=== PATIENT | female | born 1930 | race Two or more races ===

== ENCOUNTER 2017-02-12 13:55 | Emergency (ER) | payer MEDICARE, MEDICAID ==
[~2017-02-12] VITALS: Ht 160 cm; Wt 59.0 kg
[~2017-02-12 13:55] MED LIST: ASPIRIN-LOW81 MG ORAL; GABAPENTIN300 MG ORAL; GLIPIZIDE ER10 MG PO; INVANZ1 G1 IM; JANUVIA50 MG ORAL; LEVEMIR FL100 UNIT/2 SQ; METFORMIN HCL1000 M1 ORAL; STARLIX120 MG ORAL; TYLENOL EXTRA500 MG ORAL
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
[2017-02-12] MEDS ORDERED: Aspirin Baby 81mg ORAL ONE (14:30)
[2017-02-12 14:32] LABS: BASOPHILS % (AUTO) 1.1 % (0.0-2.0); LYMPHOCYTES % (AUTO) 26.5 % (20.0-45.0); MEAN CORPUSCULAR HEMOGLOBIN 30.2 PG (27.0-31.0); MEAN CORPUSCULAR HGB CONC 32.9 G/DL (32.0-36.0); MEAN CORPUSCULAR VOLUME 92 FL (80-99); MEAN PLATELET VOLUME 7.3 FL (6.5-10.1); MONOCYTES % (AUTO) 7.2 % (1.0-10.0); NEUTROPHILS % (AUTO) 64.2 % (45.0-75.0); PLATELET COUNT 212 K/UL (150-450); RED BLOOD COUNT 4.04 M/UL (4.20-5.40); RED CELL DISTRIBUTION WIDTH 11.2 % (11.6-14.8)
[2017-02-12 14:52] LABS: ALANINE AMINOTRANSFERASE 8 U/L (3-33); ALBUMIN/GLOBULIN RATIO 1.1 (1.0-2.7); ANION GAP 16 (5-15); ASPARTATE AMINO TRANSFERASE 12 U/L (5-40); CALCIUM 8.9 mg/dL (8.6-10.2); CARBON DIOXIDE 25 mEQ/L (20-30); CHLORIDE 89 mEQ/L (98-107); CREATININE 1.1 mg/dL (0.5-0.9); HEMOLYSIS 15; POTASSIUM 4.6 mEQ/L (3.4-4.9); SODIUM 130 mEQ/L (135-145)
[2017-02-12 14:55] LABS: TROPONIN I < 0.30 ng/mL (<=0.30)
--- NOTE | 2017-02-12 15:22 | Diagnostic Imaging Report ---
Indication: SOB Technique: One view of the chest Comparison: none Findings: There is some atelectasis at the right lung base. Previously demonstrated pleural effusions have largely cleared; there may be trace residual pleural fluid on the right. There is a left chest bifocal pacemaker which is new since previous study. Heart size is upper limits of normal. Aorta is tortuous and calcified Impression: Right basilar atelectasis and possibly trace pleural fluid. Otherwise clear lungs. New left chest pacemaker; recently placed according to the ER physician Other findings as noted
[2017-02-12 15:24] LABS: CKMB 1.7 ng/mL (< 3.8)
[2017-02-12 15:52] LABS: APPEARANCE,URINE CLEAR; KETONES,URINE NEGATIVE (NEGATIVE); LEUKOCYTE ESTERASE ,URINE 3+ (NEGATIVE); NITRITE,URINE POSITIVE (NEGATIVE); PH,URINE 6.5 (4.5-8.0); PROTEIN,URINE 1+ (NEGATIVE); UROBILINOGEN,URINE NORMAL MG/DL (0.0-1.0)
[2017-02-12] MEDS ORDERED: cefTRIAXone 1 GM in NS 55 ML IVPB ONE (16:00)
[2017-02-12 16:05] LABS: REFLEX LACTIC ACID YES OR NO YES
[2017-02-12 16:17] LABS: BACTERIA,URINE FEW /HPF; SQUAMOUS EPITHELIAL CELL,UR FEW /LPF (NONE/OCC)
[2017-02-12 17:09] VITALS: BP 126/51
[2017-02-12 18:36] VITALS: BP 124/48
[2017-02-12 19:52] VITALS: BP 145/72
[2017-02-12 20:00] VITALS: BP 145/72
== END 2017-02-12 20:10 | disposition short-term general hospital (02) ==
LOC: EDBD 13:55 → EMR 14:28
DX: I24.9 Acute ischemic heart disease, unspecified (principal); N39.0 Urinary tract infection, site not specified; E11.65 Type 2 diabetes mellitus with hyperglycemia; H26.9 Unspecified cataract; G62.9 Polyneuropathy, unspecified; Z95.0 Presence of cardiac pacemaker
CPT/HCPCS: 36415; 71010; 80053; 81003; 82009; 82550; 82553; 82962; 83605; 83880; 84484; 85025; 85610; 85730; 87040; 87181; 93005; 96374; 96375; 99284; J0696; J1815

== ENCOUNTER 2018-10-05 11:33 | Inpatient (IN) | payer MEDICARE, OTHER ==
[~2018-10-05] VITALS: Ht 162.6 cm; Wt 65.5 kg
[2018-10-05] MEDS ORDERED: Sodium Chloride 500ML 500 ML IV ONE (11:45)
[2018-10-05 11:47] VITALS: BP 142/96
--- NOTE | 2018-10-05 12:12 | Diagnostic Imaging Report ---
EXAM: XR Chest, 1 View CLINICAL HISTORY: Chest pain TECHNIQUE: Frontal view of the chest. COMPARISON: No relevant prior studies available. FINDINGS: Lungs: Mild pulmonary vascular congestion. The lungs otherwise appear clear. Pleural space: Unremarkable. The costophrenic angles are sharp. No visible pneumothorax. Heart: Unremarkable. No cardiomegaly. Mediastinum: Unremarkable. Bones/joints: Unremarkable. Tubes, lines and devices: Cardiac pacer in the left chest wall with the lead tips in the right atrium and right ventricle regions. IMPRESSION: Mild pulmonary vascular congestion.
[2018-10-05 12:50] LABS: APPEARANCE,URINE CLOUDY; BILIRUBIN, URINE NEGATIVE (NEGATIVE); GLUCOSE, URINE (UA) NEGATIVE (NEGATIVE); KETONES,URINE NEGATIVE (NEGATIVE); LEUKOCYTE ESTERASE ,URINE 3+ (NEGATIVE); NITRITE,URINE POSITIVE (NEGATIVE); PH,URINE 5 (4.5-8.0); PROTEIN,URINE 3+ (NEGATIVE); UROBILINOGEN,URINE NORMAL MG/DL (0.0-1.0)
[2018-10-05 12:51] LABS: BASOPHILS % (AUTO) 0.8 % (0.0-2.0); EOSINOPHILS % (AUTO) 11.7 % (0.0-3.0); HEMATOCRIT 40.2 % (37.0-47.0); HEMOGLOBIN 13.4 G/DL (12.0-16.0); LYMPHOCYTES % (AUTO) 21.6 % (20.0-45.0); MEAN CORPUSCULAR VOLUME 89 FL (80-99); MONOCYTES % (AUTO) 5.3 % (1.0-10.0); NEUTROPHILS % (AUTO) 60.7 % (45.0-75.0); PLATELET COUNT 230 K/UL (150-450); RED BLOOD COUNT 4.52 M/UL (4.20-5.40); RED CELL DISTRIBUTION WIDTH 11.2 % (11.6-14.8); WHITE BLOOD COUNT 11.5 K/UL (4.8-10.8)
[2018-10-05 12:53] LABS: COLOR,URINE YELLOW
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
[2018-10-05 13:01] LABS: ANION GAP 9 mmol/L (5-15); BLOOD UREA NITROGEN 40 mg/dL (7-18); CALCIUM 10.3 MG/DL (8.5-10.1); CARBON DIOXIDE 28 MMOL/L (21-32); CHLORIDE 99 MMOL/L (98-107); CREATININE 1.4 MG/DL (0.55-1.30); POTASSIUM 4.6 MMOL/L (3.5-5.1); SODIUM 136 MMOL/L (136-145)
[2018-10-05 13:18] LABS: ALANINE AMINOTRANSFERASE 25 U/L (12-78); ALBUMIN 3.4 G/DL (3.4-5.0); ALBUMIN/GLOBULIN RATIO 0.9 (1.0-2.7); ALKALINE PHOSPHATASE 76 U/L (46-116); ASPARTATE AMINO TRANSFERASE 14 U/L (15-37); BILIRUBIN,TOTAL 0.4 MG/DL (0.2-1.0); CKMB 2.1 NG/ML (0.0-3.6); CREATINE KINASE 98 U/L (26-308)
[2018-10-05] MEDS ORDERED: cefTRIAXone 1 GM in NS 55 ML IVPB ONE (13:30)
--- NOTE | 2018-10-05 14:18 | Diagnostic Imaging Report ---
EXAM: CT Head Without Intravenous Contrast CLINICAL HISTORY: DIZZY TECHNIQUE: Axial computed tomography images of the head/brain without intravenous contrast. CTDI is 70.53 mGy and DLP is 1376 mGy-cm. One or more of the following dose reduction techniques were used: automated exposure control, adjustment of the mA and/or kV according to patient size, use of iterative reconstruction technique. COMPARISON: No relevant prior studies available. FINDINGS: Brain: Generalized cerebral parenchymal volume loss, likely age-related. No evidence of acute intracranial hemorrhage. No significant white matter disease. No edema. No mass effect or midline shift. Ventricles: Unremarkable. No ventriculomegaly. Bones/joints: Unremarkable. No depressed skull fracture. Soft tissues: Unremarkable. Sinuses: Unremarkable as visualized. No acute sinusitis. Mastoid air cells: Unremarkable as visualized. No mastoid effusion. IMPRESSION: 1. No acute intracranial findings. 2. Generalized cerebral parenchymal volume loss, likely age-related.
[2018-10-05 16:20] VITALS: BP 124/62
[2018-10-05] MEDS ORDERED: Acetaminophen 500mg (ES) tab ORAL PRN (16:30)
[2018-10-05] MEDS ORDERED: Miralax 17gm pkt ORAL PRN (16:30)
[2018-10-05] MEDS ORDERED: Zolpidem 5mg tab ORAL PRN (16:30)
--- NOTE | 2018-10-05 16:54 | History & Physical ---
History and Physical History & Physicial HP dictated # [id number] Karel Sierra MD Oct 05, 2018 16:54
[2018-10-05] MEDS: Aspirin EC 81mg tab ORAL SCH (17:30)
[2018-10-05 20:00] VITALS: BP 123/58
[2018-10-05] MEDS ORDERED: Norco 5mg/325mg tab ORAL PRN (20:15)
[2018-10-05] MEDS: HYDROcodone/Acetamin 10/325 tab ORAL PRN (20:37)
[2018-10-05] MEDS ORDERED: Levemir Flexpen SUBQ SCH (21:00)
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
[2018-10-06] VITALS: BP 105/76
[2018-10-06 04:00] VITALS: BP 96/55
[2018-10-06] MEDS: sitaGLIPtin 25mg tab ORAL SCH (05:38)
[2018-10-06] MEDS ORDERED: 1/2 NS 1000ml IV ONE (08:43)
[2018-10-06 08:50] VITALS: BP 99/50
[2018-10-06] MEDS: Aspirin EC 81mg tab ORAL SCH (09:03)
--- NOTE | 2018-10-06 09:49 | General Progress Note ---
Assessment/Plan Problem List: (1) Acute encephalopathy ICD Codes: G93.40 - Encephalopathy, unspecified SNOMED: 8218130 (2) Diabetes mellitus ICD Codes: E11.9 - Type 2 diabetes mellitus without complications SNOMED: 87022787 (3) UTI (urinary tract infection) ICD Codes: N39.0 - Urinary tract infection, site not specified SNOMED: 69391938 (4) Episode of generalized weakness ICD Codes: R53.1 - Weakness SNOMED: 86553178 Assessment/Plan IVF abxs follow labs may need placement Subjective Allergies: Coded Allergies: PIOGLITAZONE (Unverified Allergy, Unknown, 09/05/16) Subjective confused Objective Last 24 Hour Vital Signs Date Time Temp Pulse Resp B/P (MAP) Pulse Ox O2 Delivery O2 Flow Rate FiO2 10/06/18 08:50 97.8 72 19 99/50 (66) 95 10/06/18 04:00 97.8 72 19 96/55 (69) 95 10/06/18 00:00 98.1 83 19 105/76 (86) 95 10/05/18 21:07 98.7 10/05/18 21:00 Room Air 10/05/18 20:00 98.7 71 19 123/58 (79) 95 10/05/18 16:20 97.1 78 18 124/62 (82) 94 10/05/18 16:20 Room Air 10/05/18 15:40 97.5 71 16 102/50 94 Room Air 10/05/18 11:47 83 18 Room Air 98 10/05/18 11:47 96.0 83 18 142/96 98 Room Air 10/05/18 11:24 97.5 90 17 99/85 98 Room Air Intake and Output 10/05/18 10/06/18 18:59 06:59 Intake Total 1030 ml 1080 ml Balance 1030 ml 1080 ml Intake Oral 480 ml 180 ml IV Total 550 ml 900 ml # Voids 3 2 Laboratory Tests 10/05/18 12:00: White Blood Count 11.5H, Red Blood Count 4.52, Hemoglobin 13.4, Hematocrit 40.2 , Mean Corpuscular Volume 89, Mean Corpuscular Hemoglobin 29.6, Mean Corpuscular Hemoglobin Concent 33.3, Red Cell Distribution Width 11.2L, Platelet Count 230, Mean Platelet Volume 7.7, Neutrophils (%) (Auto) 60.7, Lymphocytes (%) (Auto) 21.6, Monocytes (%) (Auto) 5.3, Eosinophils (%) (Auto) 11.7H, Basophils (%) (Auto) 0.8, Urine Color Yellow, Urine Appearance Cloudy, Urine pH 5, Urine Specific [place] 1.015, Urine Protein 3+H, Urine Glucose (UA) Negative, Urine Ketones Negative, Urine Blood 2+H, Urine Nitrite PositiveH, Urine Bilirubin Negative, Urine Urobilinogen Normal, Urine Leukocyte Esterase 3+ H, Urine RBC 2-4H, Urine WBC 60-80H, Urine Squamous Epithelial Cells Occasional , Urine Bacteria ManyH, Sodium Level 136, Potassium Level 4.6, Chloride Level 99 , Carbon Dioxide Level 28, Anion Gap 9, Blood Urea Nitrogen 40H, Creatinine 1.4H , Estimat Glomerular Filtration Rate , Glucose Level 200H, Lactic Acid Level 1.20, Calcium Level 10.3H, Total Bilirubin 0.4, Aspartate Amino Transf (AST/SGOT ) 14L, Alanine Aminotransferase (ALT/SGPT) 25, Alkaline Phosphatase 76, Total Creatine Kinase 98, Creatine Kinase MB 2.1, Creatine Kinase MB Relative Index 2.1, Troponin I 0.000, Total Protein 7.3, Albumin 3.4, Globulin 3.9, Albumin/ Globulin Ratio 0.9L, Lipase 138 Height (Feet): 5 Height (Inches): 4.00 Weight (Pounds): 139 Cardiovascular: normal rate Respiratory/Chest: lungs clear Edema: no edema noted Generalized Karel Sierra MD Oct 06, 2018 09:49
[2018-10-06] MEDS: HYDROcodone/Acetamin 10/325 tab ORAL PRN (11:42)
--- NOTE | 2018-10-06 11:45 | General Progress Note ---
Assessment/Plan Problem List: (1) Uncontrolled diabetes mellitus ICD Codes: E11.65 - Type 2 diabetes mellitus with hyperglycemia SNOMED: 061039456 (2) Dehydration ICD Codes: E86.0 - Dehydration SNOMED: 96284417 Assessment/Plan increase Levemir to 26 units qhs add Novolog 6 units ac tid continue Starlix 120 mg ac tid continue Januvia 25 mg daily continue NISS Subjective Allergies: Coded Allergies: PIOGLITAZONE (Unverified Allergy, Unknown, 09/05/16) All Systems: reviewed and negative except above Subjective admitted with elevated glucose and dehydration Objective Last 24 Hour Vital Signs Date Time Temp Pulse Resp B/P (MAP) Pulse Ox O2 Delivery O2 Flow Rate FiO2 10/06/18 09:00 Room Air 10/06/18 08:50 97.8 72 19 99/50 (66) 95 10/06/18 04:00 97.8 72 19 96/55 (69) 95 10/06/18 00:00 98.1 83 19 105/76 (86) 95 10/05/18 21:07 98.7 10/05/18 21:00 Room Air 10/05/18 20:00 98.7 71 19 123/58 (79) 95 10/05/18 16:20 97.1 78 18 124/62 (82) 94 10/05/18 16:20 Room Air 10/05/18 15:40 97.5 71 16 102/50 94 Room Air 10/05/18 11:47 83 18 Room Air 98 10/05/18 11:47 96.0 83 18 142/96 98 Room Air Intake and Output 10/05/18 10/06/18 18:59 06:59 Intake Total 1030 ml 1080 ml Balance 1030 ml 1080 ml Intake Oral 480 ml 180 ml IV Total 550 ml 900 ml # Voids 3 2 Laboratory Tests 10/05/18 12:00: White Blood Count 11.5H, Red Blood Count 4.52, Hemoglobin 13.4, Hematocrit 40.2 , Mean Corpuscular Volume 89, Mean Corpuscular Hemoglobin 29.6, Mean Corpuscular Hemoglobin Concent 33.3, Red Cell Distribution Width 11.2L, Platelet Count 230, Mean Platelet Volume 7.7, Neutrophils (%) (Auto) 60.7, Lymphocytes (%) (Auto) 21.6, Monocytes (%) (Auto) 5.3, Eosinophils (%) (Auto) 11.7H, Basophils (%) (Auto) 0.8, Urine Color Yellow, Urine Appearance Cloudy, Urine pH 5, Urine Specific [place] 1.015, Urine Protein 3+H, Urine Glucose (UA) Negative, Urine Ketones Negative, Urine Blood 2+H, Urine Nitrite PositiveH, Urine Bilirubin Negative, Urine Urobilinogen Normal, Urine Leukocyte Esterase 3+ H, Urine RBC 2-4H, Urine WBC 60-80H, Urine Squamous Epithelial Cells Occasional , Urine Bacteria ManyH, Sodium Level 136, Potassium Level 4.6, Chloride Level 99 , Carbon Dioxide Level 28, Anion Gap 9, Blood Urea Nitrogen 40H, Creatinine 1.4H , Estimat Glomerular Filtration Rate , Glucose Level 200H, Lactic Acid Level 1.20, Calcium Level 10.3H, Total Bilirubin 0.4, Aspartate Amino Transf (AST/SGOT ) 14L, Alanine Aminotransferase (ALT/SGPT) 25, Alkaline Phosphatase 76, Total Creatine Kinase 98, Creatine Kinase MB 2.1, Creatine Kinase MB Relative Index 2.1, Troponin I 0.000, Total Protein 7.3, Albumin 3.4, Globulin 3.9, Albumin/ Globulin Ratio 0.9L, Lipase 138 Height (Feet): 5 Height (Inches): 4.00 Weight (Pounds): 139 General Appearance: no apparent distress Neck: normal alignment Cardiovascular: normal rate Respiratory/Chest: chest wall non-tender Abdomen: normal bowel sounds Edema: no edema noted Arm (L), no edema noted Arm (R), no edema noted Leg (L), no edema noted Leg (R), no edema noted Pedal (L), no edema noted Pedal (R), no edema noted Generalized Objective Current Medications Medications (Trade) Dose Ordered Sig/Jose Route PRN Reason Start Time Stop Time Status Last Admin Dose Admin Acetaminophen (Tylenol) 500 mg Q6H PRN ORAL Mild Pain/Temp > 100.5 10/05/18 16:30 11/04/18 16:29 Acetaminophen/ Hydrocodone Bitart ([place] 10/325) 1 tab Q4H PRN ORAL Severe Pain (Pain Scale 7-10) 10/05/18 20:15 10/12/18 20:14 10/06/18 11:42 Acetaminophen/ Hydrocodone Bitart ([place] 5/325) 1 tab Q4H PRN ORAL Moderate Pain (Pain Scale 4-6) 10/05/18 20:15 10/12/18 20:14 Aspirin (Ecotrin) 81 mg DAILY ORAL 10/05/18 16:30 11/04/18 16:29 10/06/18 09:03 Ceftriaxone Sodium 1 gm/ Dextrose 55 ml @ 110 mls/hr Q24H IVPB 10/06/18 14:00 10/13/18 13:59 Dextrose (Dextrose 50%) 25 ml Q30M PRN IV Hypoglycemia 10/05/18 16:30 11/04/18 16:29 Dextrose (Dextrose 50%) 50 ml Q30M PRN IV Hypoglycemia 10/05/18 16:30 11/04/18 16:29 Gabapentin (Neurontin) 300 mg BID ORAL 10/05/18 18:00 11/04/18 17:59 10/06/18 09:03 Insulin Detemir (Levemir) 20 units QHS SUBQ 10/05/18 21:00 11/04/18 20:59 10/05/18 20:36 Nateglinide (Starlix) 120 mg TIAC ORAL 10/05/18 16:30 11/04/18 16:29 10/06/18 11:36 Polyethylene Glycol (Miralax) 17 gm HSPRN PRN ORAL Constipation 10/05/18 16:30 11/04/18 16:29 Sitagliptin Phosphate (Januvia) 25 mg ACBREAKFAST ORAL 10/06/18 06:30 11/05/18 06:29 10/06/18 05:38 Sodium Chloride 1,000 ml @ 75 mls/hr [id number] IV 10/05/18 16:45 11/04/18 16:44 10/06/18 05:37 Zolpidem Tartrate (Ambien) 5 mg HSPRN PRN ORAL Insomnia 10/05/18 16:30 10/12/18 16:29 Item Value Date Time Bedside Blood Glucose 144 mg/dl H 09/12/16 0611 Bedside Blood Glucose 175 mg/dl H 09/11/16 2100 Bedside Blood Glucose 184 mg/dl H 09/11/16 1805 Bedside Blood Glucose 171 mg/dl H 09/11/16 1103 Bedside Blood Glucose 158 mg/dl H 09/11/16 0626 Bedside Blood Glucose 322 mg/dl H 10/06/18 1130 Bedside Blood Glucose 238 mg/dl H 10/06/18 0623 Bedside Blood Glucose 328 mg/dl H 10/05/18 2100 Michael Cevallos MD Oct 06, 2018 11:45
[2018-10-06 12:00] VITALS: BP 100/52
[2018-10-06] MEDS: NovoLOG Insulin Flexpen SUBQ SCH ×2 (12:43→16:52)
[2018-10-06] MEDS: cefTRIAXone 1 GM in D5W 55 ML IVPB SCH (13:05)
--- NOTE | 2018-10-06 14:11 | Cardiology Report ---
APPROVED REPORT EKG Measurement Heart [id number] ID [id number] Normal sinus rhythm Septal infarct, age undetermined T wave abnormality, consider anterolateral ischemia Abnormal ECG
--- NOTE | 2018-10-06 15:45 | Consultation ---
DATE OF CONSULTATION: 10/06/2018 INFECTIOUS DISEASES CONSULTATION CONSULTING PHYSICIAN: Thomas Cherry M.D. REFERRING PHYSICIAN: Karel Sierra M.D. REASON FOR CONSULTATION: Urinary tract infection. HISTORY OF PRESENTING ILLNESS: This is a 89-year-old lady with history of diabetes, hypertension, coronary artery disease status post stent placement as well as pacemaker placement and CVA who comes in with confusion. She was found to have urinary tract infection and an Infectious Diseases consultation has been obtained for antibiotics. PAST MEDICAL HISTORY: 1. History of diabetes. 2. Hypertension. 3. Coronary artery disease status post stent placement. 4. Status post pacemaker placement. 5. History of CVA. MEDICATIONS: As an inpatient, she is on ceftriaxone, Januvia, insulin, [place], gabapentin, Tylenol, aspirin, Starlix, MiraLAX, Ambien. ALLERGIES: To pioglitazone noted. SOCIAL HISTORY: She does not smoke, drink, or use drugs. FAMILY HISTORY: Noncontributory. REVIEW OF SYSTEMS: RESPIRATORY: No fever, chills, cough, shortness of breath or chest pain. CARDIAC: No chest pain. No palpitations. No dizziness. No syncope. GASTROINTESTINAL: No nausea, no vomiting. No abdominal pain or diarrhea. GENITOURINARY: No dysuria. No hematuria. PHYSICAL EXAMINATION: VITAL SIGNS: Temperature of 97.8, T-max of 98.7, pulse of 72, respiratory rate of 19, blood pressure 99/50, O2 saturation of 95% HEENT: Pupils equally reactive to light and accommodation. Mouth appears clean without thrush. NECK: Supple. No adenopathy. No JVD. CARDIOVASCULAR: Regular rate and rhythm. No murmurs. LUNGS: Clear to auscultation bilaterally. No crackles. No wheezes. ABDOMEN: Soft and nontender. No organomegaly. EXTREMITIES: No cyanosis, no clubbing, no edema. LABORATORY AND DIAGNOSTIC DATA: White count 11.5, hemoglobin 13.4, hematocrit 40.2, MCV 89, platelet count of 230, neutrophils of 60%. Sodium 136, potassium 4.6, chloride 99, bicarbonate 28, BUN 40, creatinine 1.4, glucose 200. Calcium 10.3. Total bilirubin 0.4. AST 14, ALT 25, alkaline phosphatase 76. CK of 98, CK-MB 2.1. Troponin 0. Total protein 7.3 and albumin 3.4. Lipase of 138. UA showing 60 to 80 white cells. Urine culture is showing gram-negative rods more than 100,000 colonies. Chest x-ray showing mild pulmonary congestion. CT head showing no acute findings, generalized cerebral parenchymal volume loss, likely age-related. ASSESSMENT: This is an 88-year-old lady with history of diabetes and hypertension who comes in with confusion and is found to have: 1. Gram-negative urinary tract infection. 2. Diabetes. 3. Hypertension. 4. Coronary artery disease status post stent placement. PLAN: 1. Continue ceftriaxone for now. 2. We will follow up cultures and adjust antibiotics accordingly. I would like to thank, Dr. Karel Sierra for this consultation. Thomas Cherry M.D. DR: Titus JOB#: [id number] CC: Karel Sierra M.D.; Fax#: [phone]
[2018-10-06 16:00] VITALS: BP 100/60
[2018-10-06 20:00] VITALS: BP 121/64
[2018-10-06] MEDS: Levemir Flexpen SUBQ SCH (20:37)
[2018-10-07] VITALS: BP 126/68
[2018-10-07 04:00] VITALS: BP 118/45
[2018-10-07] MEDS: sitaGLIPtin 25mg tab ORAL SCH (05:45)
[2018-10-07] MEDS: NovoLOG Insulin Flexpen SUBQ SCH ×3 (05:49→16:19)
[2018-10-07 08:00] VITALS: BP 116/66
[2018-10-07] MEDS: Aspirin EC 81mg tab ORAL SCH (10:05)
[2018-10-07 12:00] VITALS: BP 134/70
--- NOTE | 2018-10-07 12:50 | Nephrology Progress Note ---
Assessment/Plan Assessment/Plan A/P 1) UTI- rocephin 2) DM- ISS with oral hypoglycemics 3) GERD- famotadine 4) Encephalopathy- chronic monitor [facility]) [facility] Date patient seen: Oct 07, 2018 Time patient seen: 12:47 ROS Limited/Unobtainable: No Gastrointestinal/Abdominal: Reports: nausea Allergies: Coded Allergies: PIOGLITAZONE (Unverified Allergy, Unknown, 09/05/16) Subjective Patient c/o GERD like symptoms Objective Last 24 Hour Vital Signs Date Time Temp Pulse Resp B/P (MAP) Pulse Ox O2 Delivery O2 Flow Rate FiO2 10/07/18 09:00 Room Air 10/07/18 08:00 98.0 96 19 116/66 (83) 98 10/07/18 04:00 97.7 99 18 118/45 (69) 95 10/07/18 00:00 95.9 98 20 126/68 (87) 91 10/06/18 21:00 Room Air 10/06/18 20:00 96.8 79 16 121/64 (83) 93 10/06/18 16:00 97.0 87 17 100/60 (73) 96 Intake and Output 10/06/18 10/07/18 18:59 06:59 Intake Total 1685 ml 100 ml Balance 1685 ml 100 ml Intake Oral 860 ml 100 ml IV Total 825 ml # Voids 4 Height (Feet): 5 Height (Inches): 4.00 Weight (Pounds): 139 General Appearance: no apparent distress, alert Neck: normal alignment, supple Cardiovascular: normal rate, regular rhythm Respiratory/Chest: lungs clear, normal breath sounds Abdomen: non tender, soft Edema: no edema noted Arm (L), no edema noted Arm (R), no edema noted Leg (L), no edema noted Leg (R), no edema noted Pedal (L), no edema noted Pedal (R), no edema noted Generalized Vignesh Rasheed MD Oct 07, 2018 12:50
[2018-10-07] MEDS: cefTRIAXone 1 GM in D5W 55 ML IVPB SCH (13:12)
--- NOTE | 2018-10-07 13:56 | General Progress Note ---
Assessment/Plan Problem List: (1) Uncontrolled diabetes mellitus ICD Codes: E11.65 - Type 2 diabetes mellitus with hyperglycemia SNOMED: 468898379 (2) Dehydration ICD Codes: E86.0 - Dehydration SNOMED: 21594238 Assessment/Plan continue Levemir 26 units qhs continue Novolog 6 units ac tid continue Starlix 120 mg ac tid continue Januvia 25 mg daily continue NISS Subjective Allergies: Coded Allergies: PIOGLITAZONE (Unverified Allergy, Unknown, 09/05/16) All Systems: reviewed and negative except above Subjective events noted Objective Last 24 Hour Vital Signs Date Time Temp Pulse Resp B/P (MAP) Pulse Ox O2 Delivery O2 Flow Rate FiO2 10/07/18 12:00 97.9 86 18 134/70 (91) 98 10/07/18 09:00 Room Air 10/07/18 08:00 98.0 96 19 116/66 (83) 98 10/07/18 04:00 97.7 99 18 118/45 (69) 95 10/07/18 00:00 95.9 98 20 126/68 (87) 91 10/06/18 21:00 Room Air 10/06/18 20:00 96.8 79 16 121/64 (83) 93 10/06/18 16:00 97.0 87 17 100/60 (73) 96 Intake and Output 10/06/18 10/07/18 18:59 06:59 Intake Total 1685 ml 100 ml Balance 1685 ml 100 ml Intake Oral 860 ml 100 ml IV Total 825 ml # Voids 4 Height (Feet): 5 Height (Inches): 4.00 Weight (Pounds): 139 General Appearance: no apparent distress Neck: normal alignment Cardiovascular: normal rate Respiratory/Chest: lungs clear Abdomen: normal bowel sounds Edema: no edema noted Arm (L), no edema noted Arm (R), no edema noted Leg (L), no edema noted Leg (R), no edema noted Pedal (L), no edema noted Pedal (R), no edema noted Generalized Objective Current Medications Medications (Trade) Dose Ordered Sig/Jose Route PRN Reason Start Time Stop Time Status Last Admin Dose Admin Acetaminophen (Tylenol) 500 mg Q6H PRN ORAL Mild Pain/Temp > 100.5 10/05/18 16:30 11/04/18 16:29 Acetaminophen/ Hydrocodone Bitart ([place] 10/325) 1 tab Q4H PRN ORAL Severe Pain (Pain Scale 7-10) 10/05/18 20:15 10/12/18 20:14 10/06/18 11:42 Acetaminophen/ Hydrocodone Bitart ([place] 5/325) 1 tab Q4H PRN ORAL Moderate Pain (Pain Scale 4-6) 10/05/18 20:15 10/12/18 20:14 Al Hydroxide/Mg Hydroxide (Mylanta) 30 ml Q6H PRN ORAL Abdominal cramps 10/06/18 23:45 11/05/18 23:44 10/07/18 00:13 Aspirin (Ecotrin) 81 mg DAILY ORAL 10/05/18 16:30 11/04/18 16:29 10/07/18 10:05 Ceftriaxone Sodium 1 gm/ Dextrose 55 ml @ 110 mls/hr Q24H IVPB 10/06/18 14:00 10/13/18 13:59 10/07/18 13:12 Dextrose (Dextrose 50%) 25 ml Q30M PRN IV Hypoglycemia 10/06/18 11:45 11/05/18 11:44 Dextrose (Dextrose 50%) 50 ml Q30M PRN IV Hypoglycemia 10/06/18 11:45 11/05/18 11:44 Famotidine (Pepcid) 20 mg BID ORAL 10/07/18 12:53 11/06/18 12:52 10/07/18 13:12 Gabapentin (Neurontin) 300 mg BID ORAL 10/05/18 18:00 11/04/18 17:59 10/07/18 10:05 Insulin Aspart (NovoLOG) 6 units NOVOTIAC SUBQ 10/06/18 11:50 11/05/18 11:49 10/07/18 12:02 Insulin Detemir (Levemir) 26 units QHS SUBQ 10/06/18 21:00 11/04/18 20:59 10/06/18 20:37 Nateglinide (Starlix) 120 mg TIAC ORAL 10/05/18 16:30 11/04/18 16:29 10/07/18 11:57 Polyethylene Glycol (Miralax) 17 gm HSPRN PRN ORAL Constipation 10/05/18 16:30 11/04/18 16:29 Sitagliptin Phosphate (Januvia) 25 mg ACBREAKFAST ORAL 10/06/18 06:30 11/05/18 06:29 10/07/18 05:45 Sodium Chloride 1,000 ml @ 75 mls/hr [id number] IV 10/05/18 16:45 11/04/18 16:44 10/07/18 10:05 Zolpidem Tartrate (Ambien) 5 mg HSPRN PRN ORAL Insomnia 10/05/18 16:30 10/12/18 16:29 Item Value Date Time Bedside Blood Glucose 158 mg/dl H 10/07/18 1202 Bedside Blood Glucose 217 mg/dl H 10/07/18 0549 Bedside Blood Glucose 252 mg/dl H 10/06/18 2100 Bedside Blood Glucose 227 mg/dl H 10/06/18 1652 Bedside Blood Glucose 322 mg/dl H 10/06/18 1243 Michael Cevallos MD Oct 07, 2018 13:56
[2018-10-07 16:00] VITALS: BP 140/71
--- NOTE | 2018-10-07 16:00 | Infectious Diseases Prog Note ---
Assessment/Plan Assessment/Plan antibiotics : ceftriaxone A 1. Gram-negative urinary tract infection. 2. Diabetes. 3. Hypertension. 4. Coronary artery disease status post stent placement. P 1. continue ceftriaxone 2. will follow up cultures Subjective Constitutional: Denies: fever, chills Respiratory: Denies: shortness of breath, dry cough Gastrointestinal/Abdominal: Reports: vomiting - with blood; Denies: nausea, diarrhea Musculoskeletal: Denies: pain Allergies: Coded Allergies: PIOGLITAZONE (Unverified Allergy, Unknown, 09/05/16) Objective Vital Signs Last 24 Hour Vital Signs Date Time Temp Pulse Resp B/P (MAP) Pulse Ox O2 Delivery O2 Flow Rate FiO2 10/07/18 12:00 97.9 86 18 134/70 (91) 98 10/07/18 09:00 Room Air 10/07/18 08:00 98.0 96 19 116/66 (83) 98 10/07/18 04:00 97.7 99 18 118/45 (69) 95 10/07/18 00:00 95.9 98 20 126/68 (87) 91 10/06/18 21:00 Room Air 10/06/18 20:00 96.8 79 16 121/64 (83) 93 10/06/18 16:00 97.0 87 17 100/60 (73) 96 Height (Feet): 5 Height (Inches): 4.00 Weight (Pounds): 139 Respiratory/Chest: lungs clear Cardiovascular: normal rate, regular rhythm, no gallop/murmur Abdomen: soft, non tender Extremities: no edema Microbiology Date/Time Source Procedure Growth Status 10/05/18 12:00 Blood Blood Culture - Preliminary NO GROWTH AFTER 24 HOURS Resulted 10/05/18 11:45 Blood Blood Culture - Preliminary NO GROWTH AFTER 24 HOURS Resulted 10/05/18 12:00 Urine,Clean Catch Urine Culture - Preliminary Gram Negative Bacillus 1 Resulted Current Medications Medications (Trade) Dose Ordered Sig/Jose Route PRN Reason Start Time Stop Time Status Last Admin Dose Admin Acetaminophen (Tylenol) 500 mg Q6H PRN ORAL Mild Pain/Temp > 100.5 10/05/18 16:30 11/04/18 16:29 Acetaminophen/ Hydrocodone Bitart ([place] 10/325) 1 tab Q4H PRN ORAL Severe Pain (Pain Scale 7-10) 10/05/18 20:15 10/12/18 20:14 10/06/18 11:42 Acetaminophen/ Hydrocodone Bitart ([place] 5/325) 1 tab Q4H PRN ORAL Moderate Pain (Pain Scale 4-6) 10/05/18 20:15 10/12/18 20:14 Al Hydroxide/Mg Hydroxide (Mylanta) 30 ml Q6H PRN ORAL Abdominal cramps 10/06/18 23:45 11/05/18 23:44 10/07/18 00:13 Aspirin (Ecotrin) 81 mg DAILY ORAL 10/05/18 16:30 11/04/18 16:29 10/07/18 10:05 Ceftriaxone Sodium 1 gm/ Dextrose 55 ml @ 110 mls/hr Q24H IVPB 10/06/18 14:00 10/13/18 13:59 10/07/18 13:12 Dextrose (Dextrose 50%) 25 ml Q30M PRN IV Hypoglycemia 10/06/18 11:45 11/05/18 11:44 Dextrose (Dextrose 50%) 50 ml Q30M PRN IV Hypoglycemia 10/06/18 11:45 11/05/18 11:44 Famotidine (Pepcid) 20 mg BID ORAL 10/07/18 12:53 11/06/18 12:52 10/07/18 13:12 Gabapentin (Neurontin) 300 mg BID ORAL 10/05/18 18:00 11/04/18 17:59 10/07/18 10:05 Insulin Aspart (NovoLOG) 6 units NOVOTIAC SUBQ 10/06/18 11:50 11/05/18 11:49 10/07/18 12:02 Insulin Detemir (Levemir) 26 units QHS SUBQ 10/06/18 21:00 11/04/18 20:59 10/06/18 20:37 Nateglinide (Starlix) 120 mg TIAC ORAL 10/05/18 16:30 11/04/18 16:29 10/07/18 11:57 Polyethylene Glycol (Miralax) 17 gm HSPRN PRN ORAL Constipation 10/05/18 16:30 11/04/18 16:29 Sitagliptin Phosphate (Januvia) 25 mg ACBREAKFAST ORAL 10/06/18 06:30 11/05/18 06:29 10/07/18 05:45 Sodium Chloride 1,000 ml @ 75 mls/hr [id number] IV 10/05/18 16:45 11/04/18 16:44 10/07/18 10:05 Zolpidem Tartrate (Ambien) 5 mg HSPRN PRN ORAL Insomnia 10/05/18 16:30 10/12/18 16:29 Thomas Cherry MD Oct 07, 2018 16:00
[2018-10-07] MEDS ORDERED: Levofloxacin 500mg tab ORAL SCH (18:06)
[2018-10-07 20:00] VITALS: BP 122/60
[2018-10-07] MEDS: Levemir Flexpen SUBQ SCH (20:50)
[2018-10-07] MEDS: HYDROcodone/Acetamin 10/325 tab ORAL PRN (22:42)
[2018-10-08] VITALS: BP 126/78
[2018-10-08 04:00] VITALS: BP 98/59
[2018-10-08] MEDS: NovoLOG Insulin Flexpen SUBQ SCH ×3 (06:10→17:14)
[2018-10-08] MEDS: sitaGLIPtin 25mg tab ORAL SCH (06:10)
[2018-10-08 07:12] LABS: BASOPHILS % (AUTO) 0.8 % (0.0-2.0); EOSINOPHILS % (AUTO) 16.4 % (0.0-3.0); HEMATOCRIT 35.3 % (37.0-47.0); LYMPHOCYTES % (AUTO) 26.4 % (20.0-45.0); MEAN CORPUSCULAR VOLUME 89 FL (80-99); NEUTROPHILS % (AUTO) 49.4 % (45.0-75.0); PLATELET COUNT 183 K/UL (150-450); RED BLOOD COUNT 3.96 M/UL (4.20-5.40); RED CELL DISTRIBUTION WIDTH 11.4 % (11.6-14.8); WHITE BLOOD COUNT 9.7 K/UL (4.8-10.8)
[2018-10-08 07:22] LABS: ANION GAP 7 mmol/L (5-15); BLOOD UREA NITROGEN 27 mg/dL (7-18); CALCIUM 8.8 MG/DL (8.5-10.1); CARBON DIOXIDE 27 MMOL/L (21-32); CHLORIDE 105 MMOL/L (98-107); CREATININE 1.4 MG/DL (0.55-1.30); POTASSIUM 4.2 MMOL/L (3.5-5.1); SODIUM 139 MMOL/L (136-145)
[2018-10-08 08:00] VITALS: BP 111/65
[2018-10-08] MEDS: Aspirin EC 81mg tab ORAL SCH (08:07)
--- NOTE | 2018-10-08 09:36 | General Progress Note ---
Assessment/Plan Problem List: (1) Uncontrolled diabetes mellitus ICD Codes: E11.65 - Type 2 diabetes mellitus with hyperglycemia SNOMED: 942038033 (2) Dehydration ICD Codes: E86.0 - Dehydration SNOMED: 52347562 Assessment/Plan continue Levemir 26 units qhs continue Novolog 6 units ac tid continue Starlix 120 mg ac tid continue Januvia 25 mg daily continue NISS Subjective Allergies: Coded Allergies: PIOGLITAZONE (Unverified Allergy, Unknown, 09/05/16) All Systems: reviewed and negative except above Subjective events noted Objective Last 24 Hour Vital Signs Date Time Temp Pulse Resp B/P (MAP) Pulse Ox O2 Delivery O2 Flow Rate FiO2 10/08/18 04:00 98.0 79 16 98/59 (72) 95 10/08/18 00:00 96.6 96 18 126/78 (94) 96 10/07/18 21:00 Room Air 10/07/18 20:00 97.9 98 18 122/60 (80) 97 10/07/18 16:00 98.8 88 19 140/71 (94) 98 10/07/18 12:00 97.9 86 18 134/70 (91) 98 Intake and Output 10/07/18 10/08/18 19:00 07:00 Intake Total 1000 ml Output Total 300 ml Balance 1000 ml -300 ml Other 1000 ml Output Urine Total 300 ml # Voids 2 # Bowel Movements 2 Laboratory Tests 10/08/18 05:50: White Blood Count 9.7, Red Blood Count 3.96L, Hemoglobin 12.0, Hematocrit 35.3L , Mean Corpuscular Volume 89, Mean Corpuscular Hemoglobin 30.4, Mean Corpuscular Hemoglobin Concent 34.1, Red Cell Distribution Width 11.4L, Platelet Count 183, Mean Platelet Volume 7.1, Neutrophils (%) (Auto) 49.4, Lymphocytes (%) (Auto) 26.4, Monocytes (%) (Auto) 7.0, Eosinophils (%) (Auto) 16.4H, Basophils (%) (Auto) 0.8, Sodium Level 139, Potassium Level 4.2, Chloride Level 105, Carbon Dioxide Level 27, Anion Gap 7, Blood Urea Nitrogen 27H, Creatinine 1.4H, Estimat Glomerular Filtration Rate , Glucose Level 170H, Calcium Level 8.8 Height (Feet): 5 Height (Inches): 4.00 Weight (Pounds): 139 General Appearance: no apparent distress Neck: normal alignment Cardiovascular: normal rate Respiratory/Chest: decreased breath sounds Abdomen: normal bowel sounds Objective Current Medications Medications (Trade) Dose Ordered Sig/Jose Route PRN Reason Start Time Stop Time Status Last Admin Dose Admin Acetaminophen (Tylenol) 500 mg Q6H PRN ORAL Mild Pain/Temp > 100.5 10/05/18 16:30 11/04/18 16:29 Acetaminophen/ Hydrocodone Bitart ([place] 10/325) 1 tab Q4H PRN ORAL Severe Pain (Pain Scale 7-10) 10/05/18 20:15 10/12/18 20:14 10/07/18 22:42 Acetaminophen/ Hydrocodone Bitart ([place] 5/325) 1 tab Q4H PRN ORAL Moderate Pain (Pain Scale 4-6) 10/05/18 20:15 10/12/18 20:14 Al Hydroxide/Mg Hydroxide (Mylanta) 30 ml Q6H PRN ORAL Abdominal cramps 10/06/18 23:45 11/05/18 23:44 10/07/18 00:13 Aspirin (Ecotrin) 81 mg DAILY ORAL 10/05/18 16:30 11/04/18 16:29 10/08/18 08:07 Dextrose (Dextrose 50%) 25 ml Q30M PRN IV Hypoglycemia 10/06/18 11:45 11/05/18 11:44 Dextrose (Dextrose 50%) 50 ml Q30M PRN IV Hypoglycemia 10/06/18 11:45 11/05/18 11:44 Famotidine (Pepcid) 20 mg BID ORAL 10/07/18 12:53 11/06/18 12:52 10/08/18 08:07 Gabapentin (Neurontin) 300 mg BID ORAL 10/05/18 18:00 11/04/18 17:59 10/08/18 08:07 Insulin Aspart (NovoLOG) 6 units NOVOTIAC SUBQ 10/06/18 11:50 11/05/18 11:49 10/08/18 06:10 Insulin Detemir (Levemir) 26 units QHS SUBQ 10/06/18 21:00 11/04/18 20:59 10/07/18 20:50 Levofloxacin (Levaquin) 250 mg DAILY ORAL 10/08/18 09:00 10/15/18 08:59 10/08/18 08:07 Nateglinide (Starlix) 120 mg TIAC ORAL 10/05/18 16:30 11/04/18 16:29 10/08/18 06:09 Polyethylene Glycol (Miralax) 17 gm HSPRN PRN ORAL Constipation 10/05/18 16:30 11/04/18 16:29 Sitagliptin Phosphate (Januvia) 25 mg ACBREAKFAST ORAL 10/06/18 06:30 11/05/18 06:29 10/08/18 06:10 Sodium Chloride 1,000 ml @ 75 mls/hr [id number] IV 10/05/18 16:45 11/04/18 16:44 10/07/18 10:05 Zolpidem Tartrate (Ambien) 5 mg HSPRN PRN ORAL Insomnia 10/05/18 16:30 10/12/18 16:29 Item Value Date Time Bedside Blood Glucose 168 mg/dl H 10/08/18 0630 Bedside Blood Glucose 225 mg/dl H 10/07/18 2100 Bedside Blood Glucose 225 mg/dl H 10/07/18 1630 Bedside Blood Glucose 158 mg/dl H 10/07/18 1202 Michael Cevallos MD Oct 08, 2018 09:36
--- NOTE | 2018-10-08 10:23 | Nephrology Progress Note ---
Assessment/Plan Assessment/Plan A/P 1) UTI- oral levaquin 2) DM- ISS with oral hypoglycemics 3) GERD- famotadine 4) Encephalopathy- chronic monitor [facility]) [facility] Subject[facility] Date patient seen: Oct 08, 2018 Time patient seen: 10:20 ROS Limited/Unobtainable: No Allergies: Coded Allergies: PIOGLITAZONE (Unverified Allergy, Unknown, 09/05/16) Subjective Patient awaiting placement Objective Last 24 Hour Vital Signs Date Time Temp Pulse Resp B/P (MAP) Pulse Ox O2 Delivery O2 Flow Rate FiO2 10/08/18 04:00 98.0 79 16 98/59 (72) 95 10/08/18 00:00 96.6 96 18 126/78 (94) 96 10/07/18 21:00 Room Air 10/07/18 20:00 97.9 98 18 122/60 (80) 97 10/07/18 16:00 98.8 88 19 140/71 (94) 98 10/07/18 12:00 97.9 86 18 134/70 (91) 98 Intake and Output 10/07/18 10/08/18 19:00 07:00 Intake Total 1000 ml Output Total 300 ml Balance 1000 ml -300 ml Other 1000 ml Output Urine Total 300 ml # Voids 2 # Bowel Movements 2 Laboratory Tests 10/08/18 05:50: White Blood Count 9.7, Red Blood Count 3.96L, Hemoglobin 12.0, Hematocrit 35.3L , Mean Corpuscular Volume 89, Mean Corpuscular Hemoglobin 30.4, Mean Corpuscular Hemoglobin Concent 34.1, Red Cell Distribution Width 11.4L, Platelet Count 183, Mean Platelet Volume 7.1, Neutrophils (%) (Auto) 49.4, Lymphocytes (%) (Auto) 26.4, Monocytes (%) (Auto) 7.0, Eosinophils (%) (Auto) 16.4H, Basophils (%) (Auto) 0.8, Sodium Level 139, Potassium Level 4.2, Chloride Level 105, Carbon Dioxide Level 27, Anion Gap 7, Blood Urea Nitrogen 27H, Creatinine 1.4H, Estimat Glomerular Filtration Rate , Glucose Level 170H, Calcium Level 8.8 Height (Feet): 5 Height (Inches): 4.00 Weight (Pounds): 139 General Appearance: no apparent distress, alert EENT: normal ENT inspection Neck: normal alignment, supple Cardiovascular: normal rate, regular rhythm Respiratory/Chest: lungs clear, normal breath sounds Abdomen: non tender, soft Edema: no edema noted Arm (L), no edema noted Arm (R), no edema noted Leg (L), no edema noted Leg (R), no edema noted Pedal (L), no edema noted Pedal (R), no edema noted Generalized Vignesh Rasheed MD Oct 08, 2018 10:23
--- NOTE | 2018-10-08 10:36 | Infectious Diseases Prog Note ---
Assessment/Plan Assessment/Plan A 1. E. coli urinary tract infection. 2. Diabetes. 3. Hypertension. 4. Coronary artery disease status post stent placement. P; Change Levaquin to Keflex Subjective ROS Limited/Unobtainable: Yes Respiratory: Reports: no symptoms Musculoskeletal: Reports: no symptoms Allergies: Coded Allergies: PIOGLITAZONE (Unverified Allergy, Unknown, 09/05/16) Objective Vital Signs Last 24 Hour Vital Signs Date Time Temp Pulse Resp B/P (MAP) Pulse Ox O2 Delivery O2 Flow Rate FiO2 10/08/18 09:00 Room Air 10/08/18 08:00 98.6 62 19 111/65 (80) 95 10/08/18 04:00 98.0 79 16 98/59 (72) 95 10/08/18 00:00 96.6 96 18 126/78 (94) 96 10/07/18 21:00 Room Air 10/07/18 20:00 97.9 98 18 122/60 (80) 97 10/07/18 16:00 98.8 88 19 140/71 (94) 98 10/07/18 12:00 97.9 86 18 134/70 (91) 98 Height (Feet): 5 Height (Inches): 4.00 Weight (Pounds): 139 General Appearance: no acute distress HEENT: mucous membranes moist Respiratory/Chest: lungs clear Cardiovascular: normal rate Abdomen: soft, non tender Extremities: no edema Neurologic/Psychiatric: alert, responsive Microbiology Date/Time Source Procedure Growth Status 10/05/18 12:00 Blood Blood Culture - Preliminary NO GROWTH AFTER 48 HOURS Resulted 10/05/18 11:45 Blood Blood Culture - Preliminary NO GROWTH AFTER 48 HOURS Resulted 10/05/18 12:00 Urine,Clean Catch Urine Culture - Final Escherichia Coli Complete Laboratory Tests Test 10/08/18 05:50 White Blood Count 9.7 K/UL (4.8-10.8) Red Blood Count 3.96 M/UL (4.20-5.40) L Hemoglobin 12.0 G/DL (12.0-16.0) Hematocrit 35.3 % (37.0-47.0) L Mean Corpuscular Volume 89 FL (80-99) Mean Corpuscular Hemoglobin 30.4 PG (27.0-31.0) Mean Corpuscular Hemoglobin Concent 34.1 G/DL (32.0-36.0) Red Cell Distribution Width 11.4 % (11.6-14.8) L Platelet Count 183 K/UL (150-450) Mean Platelet Volume 7.1 FL (6.5-10.1) Neutrophils (%) (Auto) 49.4 % (45.0-75.0) Lymphocytes (%) (Auto) 26.4 % (20.0-45.0) Monocytes (%) (Auto) 7.0 % (1.0-10.0) Eosinophils (%) (Auto) 16.4 % (0.0-3.0) H Basophils (%) (Auto) 0.8 % (0.0-2.0) Sodium Level 139 MMOL/L (136-145) Potassium Level 4.2 MMOL/L (3.5-5.1) Chloride Level 105 MMOL/L (98-107) Carbon Dioxide Level 27 MMOL/L (21-32) Anion Gap 7 mmol/L (5-15) Blood Urea Nitrogen 27 mg/dL (7-18) H Creatinine 1.4 MG/DL (0.55-1.30) H Estimat Glomerular Filtration Rate mL/min (>60) Glucose Level 170 MG/DL (74-106) H Calcium Level 8.8 MG/DL (8.5-10.1) Current Medications Medications (Trade) Dose Ordered Sig/Jose Route PRN Reason Start Time Stop Time Status Last Admin Dose Admin Acetaminophen (Tylenol) 500 mg Q6H PRN ORAL Mild Pain/Temp > 100.5 10/05/18 16:30 11/04/18 16:29 Acetaminophen/ Hydrocodone Bitart ([place] 10/325) 1 tab Q4H PRN ORAL Severe Pain (Pain Scale 7-10) 10/05/18 20:15 10/12/18 20:14 10/07/18 22:42 Acetaminophen/ Hydrocodone Bitart ([place] 5/325) 1 tab Q4H PRN ORAL Moderate Pain (Pain Scale 4-6) 10/05/18 20:15 10/12/18 20:14 Al Hydroxide/Mg Hydroxide (Mylanta) 30 ml Q6H PRN ORAL Abdominal cramps 10/06/18 23:45 11/05/18 23:44 10/07/18 00:13 Aspirin (Ecotrin) 81 mg DAILY ORAL 10/05/18 16:30 11/04/18 16:29 10/08/18 08:07 Dextrose (Dextrose 50%) 25 ml Q30M PRN IV Hypoglycemia 10/06/18 11:45 11/05/18 11:44 Dextrose (Dextrose 50%) 50 ml Q30M PRN IV Hypoglycemia 10/06/18 11:45 11/05/18 11:44 Famotidine (Pepcid) 20 mg BID ORAL 10/07/18 12:53 11/06/18 12:52 10/08/18 08:07 Gabapentin (Neurontin) 300 mg BID ORAL 10/05/18 18:00 11/04/18 17:59 10/08/18 08:07 Insulin Aspart (NovoLOG) 6 units NOVOTIAC SUBQ 10/06/18 11:50 11/05/18 11:49 10/08/18 06:10 Insulin Detemir (Levemir) 26 units QHS SUBQ 10/06/18 21:00 11/04/18 20:59 10/07/18 20:50 Levofloxacin (Levaquin) 250 mg DAILY ORAL 10/08/18 09:00 10/15/18 08:59 10/08/18 08:07 Nateglinide (Starlix) 120 mg TIAC ORAL 10/05/18 16:30 11/04/18 16:29 10/08/18 06:09 Polyethylene Glycol (Miralax) 17 gm HSPRN PRN ORAL Constipation 10/05/18 16:30 11/04/18 16:29 Sitagliptin Phosphate (Januvia) 25 mg ACBREAKFAST ORAL 10/06/18 06:30 11/05/18 06:29 10/08/18 06:10 Zolpidem Tartrate (Ambien) 5 mg HSPRN PRN ORAL Insomnia 10/05/18 16:30 10/12/18 16:29 Sunny Sierra MD Oct 08, 2018 10:36
[2018-10-08 12:00] VITALS: BP 110/70
[2018-10-08] MEDS ORDERED: Cephalexin 500mg cap ORAL SCH (14:00)
[2018-10-08] MEDS: Cephalexin 250mg Cap ORAL SCH ×2 (14:22→21:06)
[2018-10-08 16:00] VITALS: BP 132/93
[2018-10-08 20:00] VITALS: BP 142/78
[2018-10-08] MEDS: Levemir Flexpen SUBQ SCH (20:37)
[2018-10-08] MEDS: HYDROcodone/Acetamin 10/325 tab ORAL PRN (22:02)
[2018-10-09] VITALS: BP 111/69
[2018-10-09 04:00] VITALS: BP 133/70
[2018-10-09] MEDS: sitaGLIPtin 25mg tab ORAL SCH (06:16)
[2018-10-09] MEDS: Cephalexin 250mg Cap ORAL SCH ×3 (06:16→21:38)
[2018-10-09] MEDS: NovoLOG Insulin Flexpen SUBQ SCH ×3 (06:17→17:13)
--- NOTE | 2018-10-09 07:03 | General Progress Note ---
Assessment/Plan Problem List: (1) Uncontrolled diabetes mellitus ICD Codes: E11.65 - Type 2 diabetes mellitus with hyperglycemia SNOMED: 076632965 (2) Dehydration ICD Codes: E86.0 - Dehydration SNOMED: 01096203 Assessment/Plan increase Levemir to 30 units qhs continue Novolog 6 units ac tid continue Starlix 120 mg ac tid continue Januvia 25 mg daily continue NISS Subjective Allergies: Coded Allergies: PIOGLITAZONE (Unverified Allergy, Unknown, 09/05/16) All Systems: reviewed and negative except above Subjective events noted Objective Last 24 Hour Vital Signs Date Time Temp Pulse Resp B/P (MAP) Pulse Ox O2 Delivery O2 Flow Rate FiO2 10/09/18 04:00 96.8 81 20 133/70 (91) 94 10/09/18 00:00 97.5 77 20 111/69 (83) 97 10/08/18 21:00 Room Air 10/08/18 20:00 96.8 96 20 142/78 (99) 94 10/08/18 16:00 98.6 85 19 132/93 (106) 95 10/08/18 12:00 97.6 71 18 110/70 (83) 96 10/08/18 09:00 Room Air 10/08/18 08:00 98.6 62 19 111/65 (80) 95 Intake and Output 10/08/18 10/09/18 19:00 07:00 Intake Total 600 ml 450 ml Balance 600 ml 450 ml Intake Oral 450 ml Other 600 ml # Voids 6 # Bowel Movements 2 Height (Feet): 5 Height (Inches): 4.00 Weight (Pounds): 144 General Appearance: no apparent distress Neck: normal alignment Cardiovascular: normal rate Respiratory/Chest: lungs clear Abdomen: normal bowel sounds Pelvis: normal external exam Objective Current Medications Medications (Trade) Dose Ordered Sig/Jose Route PRN Reason Start Time Stop Time Status Last Admin Dose Admin Acetaminophen (Tylenol) 500 mg Q6H PRN ORAL Mild Pain/Temp > 100.5 10/05/18 16:30 11/04/18 16:29 Acetaminophen/ Hydrocodone Bitart ([place] 10/325) 1 tab Q4H PRN ORAL Severe Pain (Pain Scale 7-10) 10/05/18 20:15 10/12/18 20:14 10/08/18 22:02 Acetaminophen/ Hydrocodone Bitart ([place] 5/325) 1 tab Q4H PRN ORAL Moderate Pain (Pain Scale 4-6) 10/05/18 20:15 10/12/18 20:14 Al Hydroxide/Mg Hydroxide (Mylanta) 30 ml Q6H PRN ORAL Abdominal cramps 10/06/18 23:45 11/05/18 23:44 10/07/18 00:13 Aspirin (Ecotrin) 81 mg DAILY ORAL 10/05/18 16:30 11/04/18 16:29 10/08/18 08:07 Cephalexin (Keflex) 250 mg Q8HR ORAL 10/08/18 14:00 10/15/18 13:59 10/09/18 06:16 Dextrose (Dextrose 50%) 25 ml Q30M PRN IV Hypoglycemia 10/06/18 11:45 11/05/18 11:44 Dextrose (Dextrose 50%) 50 ml Q30M PRN IV Hypoglycemia 10/06/18 11:45 11/05/18 11:44 Famotidine (Pepcid) 20 mg BID ORAL 10/07/18 12:53 11/06/18 12:52 10/08/18 17:13 Gabapentin (Neurontin) 300 mg BID ORAL 10/05/18 18:00 11/04/18 17:59 10/08/18 17:13 Insulin Aspart (NovoLOG) 6 units NOVOTIAC SUBQ 10/06/18 11:50 11/05/18 11:49 10/09/18 06:17 Insulin Detemir (Levemir) 26 units QHS SUBQ 10/06/18 21:00 11/04/18 20:59 10/08/18 20:37 Nateglinide (Starlix) 120 mg TIAC ORAL 10/05/18 16:30 11/04/18 16:29 10/09/18 06:16 Polyethylene Glycol (Miralax) 17 gm HSPRN PRN ORAL Constipation 10/05/18 16:30 11/04/18 16:29 Sitagliptin Phosphate (Januvia) 25 mg ACBREAKFAST ORAL 10/06/18 06:30 11/05/18 06:29 10/09/18 06:16 Zolpidem Tartrate (Ambien) 5 mg HSPRN PRN ORAL Insomnia 10/05/18 16:30 10/12/18 16:29 10/08/18 20:36 Item Value Date Time Bedside Blood Glucose 275 mg/dl H 10/09/18 0630 Bedside Blood Glucose 188 mg/dl H 10/08/18 2100 Bedside Blood Glucose 181 mg/dl H 10/08/18 1714 Bedside Blood Glucose 211 mg/dl H 10/08/18 1248 Bedside Blood Glucose 168 mg/dl H 10/08/18 0630 Michael Cevallos MD Oct 09, 2018 07:03
[2018-10-09 08:00] VITALS: BP 129/73
[2018-10-09] MEDS: Aspirin EC 81mg tab ORAL SCH (08:06)
[2018-10-09 12:00] VITALS: BP 95/59
--- NOTE | 2018-10-09 14:06 | Infectious Diseases Prog Note ---
Assessment/Plan Assessment/Plan A 1. E. coli urinary tract infection. 2. Diabetes. 3. Hypertension. 4. Coronary artery disease status post stent placement. P; Continue Keflex Subjective ROS Limited/Unobtainable: Yes Allergies: Coded Allergies: PIOGLITAZONE (Unverified Allergy, Unknown, 09/05/16) Objective Vital Signs Last 24 Hour Vital Signs Date Time Temp Pulse Resp B/P (MAP) Pulse Ox O2 Delivery O2 Flow Rate FiO2 10/09/18 12:00 97.8 94 18 95/59 (71) 93 10/09/18 09:00 Room Air 10/09/18 08:00 97.9 85 16 129/73 (91) 96 10/09/18 04:00 96.8 81 20 133/70 (91) 94 10/09/18 00:00 97.5 77 20 111/69 (83) 97 10/08/18 21:00 Room Air 10/08/18 20:00 96.8 96 20 142/78 (99) 94 10/08/18 16:00 98.6 85 19 132/93 (106) 95 Height (Feet): 5 Height (Inches): 4.00 Weight (Pounds): 144 General Appearance: no acute distress HEENT: mucous membranes moist Respiratory/Chest: lungs clear Cardiovascular: normal rate Abdomen: soft, non tender Extremities: no edema Neurologic/Psychiatric: other - sleeping Current Medications Medications (Trade) Dose Ordered Sig/Jose Route PRN Reason Start Time Stop Time Status Last Admin Dose Admin Acetaminophen (Tylenol) 500 mg Q6H PRN ORAL Mild Pain/Temp > 100.5 10/05/18 16:30 11/04/18 16:29 Acetaminophen/ Hydrocodone Bitart ([place] 10/325) 1 tab Q4H PRN ORAL Severe Pain (Pain Scale 7-10) 10/05/18 20:15 10/12/18 20:14 10/08/18 22:02 Acetaminophen/ Hydrocodone Bitart ([place] 5/325) 1 tab Q4H PRN ORAL Moderate Pain (Pain Scale 4-6) 10/05/18 20:15 10/12/18 20:14 Al Hydroxide/Mg Hydroxide (Mylanta) 30 ml Q6H PRN ORAL Abdominal cramps 10/06/18 23:45 11/05/18 23:44 10/07/18 00:13 Aspirin (Ecotrin) 81 mg DAILY ORAL 10/05/18 16:30 11/04/18 16:29 10/09/18 08:06 Cephalexin (Keflex) 250 mg Q8HR ORAL 10/08/18 14:00 10/15/18 13:59 10/09/18 06:16 Dextrose (Dextrose 50%) 25 ml Q30M PRN IV Hypoglycemia 10/06/18 11:45 11/05/18 11:44 Dextrose (Dextrose 50%) 50 ml Q30M PRN IV Hypoglycemia 10/06/18 11:45 11/05/18 11:44 Famotidine (Pepcid) 20 mg BID ORAL 10/07/18 12:53 11/06/18 12:52 10/09/18 08:06 Gabapentin (Neurontin) 300 mg BID ORAL 10/05/18 18:00 11/04/18 17:59 10/09/18 08:06 Insulin Aspart (NovoLOG) 6 units NOVOTIAC SUBQ 10/06/18 11:50 11/05/18 11:49 10/09/18 11:40 Insulin Detemir (Levemir) 30 units QHS SUBQ 10/09/18 21:00 11/04/18 20:59 Nateglinide (Starlix) 120 mg TIAC ORAL 10/05/18 16:30 11/04/18 16:29 10/09/18 11:34 Ondansetron HCl (Zofran) 4 mg Q6H PRN IVP Nausea & Vomiting 10/09/18 08:30 11/08/18 08:29 10/09/18 09:45 Polyethylene Glycol (Miralax) 17 gm HSPRN PRN ORAL Constipation 10/05/18 16:30 11/04/18 16:29 Sitagliptin Phosphate (Januvia) 25 mg ACBREAKFAST ORAL 10/06/18 06:30 11/05/18 06:29 10/09/18 06:16 Zolpidem Tartrate (Ambien) 5 mg HSPRN PRN ORAL Insomnia 10/05/18 16:30 10/12/18 16:29 10/08/18 20:36 Sunny Sierra MD Oct 09, 2018 14:06
[2018-10-09 16:00] VITALS: BP 122/57
--- NOTE | 2018-10-09 16:33 | General Progress Note ---
Assessment/Plan Problem List: (1) Acute encephalopathy ICD Codes: G93.40 - Encephalopathy, unspecified SNOMED: 4293127 (2) Diabetes mellitus ICD Codes: E11.9 - Type 2 diabetes mellitus without complications SNOMED: 46409335 (3) UTI (urinary tract infection) ICD Codes: N39.0 - Urinary tract infection, site not specified SNOMED: 11038880 (4) Episode of generalized weakness ICD Codes: R53.1 - Weakness SNOMED: 77815535 Assessment/Plan IVF abxs follow labs may need placement Subjective Allergies: Coded Allergies: PIOGLITAZONE (Unverified Allergy, Unknown, 09/05/16) Subjective confused Objective Last 24 Hour Vital Signs Date Time Temp Pulse Resp B/P (MAP) Pulse Ox O2 Delivery O2 Flow Rate FiO2 10/09/18 16:00 97.7 84 18 122/57 (78) 94 10/09/18 12:00 97.8 94 18 95/59 (71) 93 10/09/18 09:00 Room Air 10/09/18 08:00 97.9 85 16 129/73 (91) 96 10/09/18 04:00 96.8 81 20 133/70 (91) 94 10/09/18 00:00 97.5 77 20 111/69 (83) 97 10/08/18 21:00 Room Air 10/08/18 20:00 96.8 96 20 142/78 (99) 94 Intake and Output 10/08/18 10/09/18 19:00 07:00 Intake Total 600 ml 450 ml Balance 600 ml 450 ml Intake Oral 450 ml Other 600 ml # Voids 6 # Bowel Movements 2 Height (Feet): 5 Height (Inches): 4.00 Weight (Pounds): 144 Cardiovascular: normal rate Respiratory/Chest: lungs clear Edema: no edema noted Karel Kebede MD Oct 09, 2018 16:33
[2018-10-09 20:00] VITALS: BP 99/51
[2018-10-09] MEDS: Levemir Flexpen SUBQ SCH (21:39)
[2018-10-10] VITALS: BP 104/51
[2018-10-10 04:00] VITALS: BP 101/56
[2018-10-10] MEDS: sitaGLIPtin 25mg tab ORAL SCH (06:41)
[2018-10-10] MEDS: Cephalexin 250mg Cap ORAL SCH ×3 (06:41→22:06)
[2018-10-10] MEDS: NovoLOG Insulin Flexpen SUBQ SCH ×3 (06:42→17:40)
[2018-10-10 08:00] VITALS: BP 138/61
[2018-10-10] MEDS: Aspirin EC 81mg tab ORAL SCH (08:50)
[2018-10-10 12:00] VITALS: BP 156/72
--- NOTE | 2018-10-10 12:30 | Infectious Diseases Prog Note ---
Assessment/Plan Assessment/Plan A 1. E. coli urinary tract infection. 2. Diabetes. 3. Hypertension. 4. Coronary artery disease status post stent placement. P; Continue Keflex Subjective ROS Limited/Unobtainable: Yes Constitutional: Reports: no symptoms Gastrointestinal/Abdominal: Reports: other - lower abdominal pain Allergies: Coded Allergies: PIOGLITAZONE (Unverified Allergy, Unknown, 09/05/16) Objective Vital Signs Last 24 Hour Vital Signs Date Time Temp Pulse Resp B/P (MAP) Pulse Ox O2 Delivery O2 Flow Rate FiO2 10/10/18 09:00 Room Air 10/10/18 08:00 98.2 97 20 138/61 (86) 97 10/10/18 04:00 97.7 65 20 101/56 (71) 93 10/10/18 00:00 98.1 83 19 104/51 (68) 94 10/09/18 21:00 Room Air 10/09/18 20:00 98.1 92 20 99/51 (67) 93 10/09/18 16:00 97.7 84 18 122/57 (78) 94 Height (Feet): 5 Height (Inches): 4.00 Weight (Pounds): 144 General Appearance: no acute distress HEENT: mucous membranes moist Respiratory/Chest: lungs clear Cardiovascular: normal rate Abdomen: soft, non tender Extremities: no edema Neurologic/Psychiatric: alert, responsive, disoriented Current Medications Medications (Trade) Dose Ordered Sig/Jose Route PRN Reason Start Time Stop Time Status Last Admin Dose Admin Acetaminophen (Tylenol) 500 mg Q6H PRN ORAL Mild Pain/Temp > 100.5 10/05/18 16:30 11/04/18 16:29 Acetaminophen/ Hydrocodone Bitart ([place] 10/325) 1 tab Q4H PRN ORAL Severe Pain (Pain Scale 7-10) 10/05/18 20:15 10/12/18 20:14 10/08/18 22:02 Acetaminophen/ Hydrocodone Bitart ([place] 5/325) 1 tab Q4H PRN ORAL Moderate Pain (Pain Scale 4-6) 10/05/18 20:15 10/12/18 20:14 Al Hydroxide/Mg Hydroxide (Mylanta) 30 ml Q6H PRN ORAL Abdominal cramps 10/06/18 23:45 11/05/18 23:44 10/07/18 00:13 Aspirin (Ecotrin) 81 mg DAILY ORAL 10/05/18 16:30 11/04/18 16:29 10/10/18 08:50 Cephalexin (Keflex) 250 mg Q8HR ORAL 10/09/18 22:00 10/13/18 00:00 10/10/18 06:41 Dextrose (Dextrose 50%) 25 ml Q30M PRN IV Hypoglycemia 10/06/18 11:45 11/05/18 11:44 Dextrose (Dextrose 50%) 50 ml Q30M PRN IV Hypoglycemia 10/06/18 11:45 11/05/18 11:44 Famotidine (Pepcid) 20 mg BID ORAL 10/07/18 12:53 11/06/18 12:52 10/10/18 08:50 Gabapentin (Neurontin) 300 mg BID ORAL 10/05/18 18:00 11/04/18 17:59 10/10/18 08:50 Insulin Aspart (NovoLOG) 6 units NOVOTIAC SUBQ 10/06/18 11:50 11/05/18 11:49 10/10/18 12:24 Insulin Detemir (Levemir) 30 units QHS SUBQ 10/09/18 21:00 11/04/18 20:59 10/09/18 21:39 Nateglinide (Starlix) 120 mg TIAC ORAL 10/05/18 16:30 11/04/18 16:29 10/10/18 11:47 Ondansetron HCl (Zofran) 4 mg Q6H PRN IVP Nausea & Vomiting 10/09/18 08:30 11/08/18 08:29 10/09/18 09:45 Polyethylene Glycol (Miralax) 17 gm HSPRN PRN ORAL Constipation 10/05/18 16:30 11/04/18 16:29 Sitagliptin Phosphate (Januvia) 25 mg ACBREAKFAST ORAL 10/06/18 06:30 11/05/18 06:29 10/10/18 06:41 Zolpidem Tartrate (Ambien) 5 mg HSPRN PRN ORAL Insomnia 10/05/18 16:30 10/12/18 16:29 10/08/18 20:36 Sunny Sierra MD Oct 10, 2018 12:30
--- NOTE | 2018-10-10 13:11 | General Progress Note ---
Assessment/Plan Problem List: (1) Acute encephalopathy ICD Codes: G93.40 - Encephalopathy, unspecified SNOMED: 9782796 (2) Diabetes mellitus ICD Codes: E11.9 - Type 2 diabetes mellitus without complications SNOMED: 18169020 (3) UTI (urinary tract infection) ICD Codes: N39.0 - Urinary tract infection, site not specified SNOMED: 73625743 (4) Episode of generalized weakness ICD Codes: R53.1 - Weakness SNOMED: 10432973 Assessment/Plan DC IVF abxs follow labs SNF if family agrees Subjective Allergies: Coded Allergies: PIOGLITAZONE (Unverified Allergy, Unknown, 09/05/16) Subjective confused Objective Last 24 Hour Vital Signs Date Time Temp Pulse Resp B/P (MAP) Pulse Ox O2 Delivery O2 Flow Rate FiO2 10/10/18 12:00 97.7 66 21 156/72 (100) 98 10/10/18 09:00 Room Air 10/10/18 08:00 98.2 97 20 138/61 (86) 97 10/10/18 04:00 97.7 65 20 101/56 (71) 93 10/10/18 00:00 98.1 83 19 104/51 (68) 94 10/09/18 21:00 Room Air 10/09/18 20:00 98.1 92 20 99/51 (67) 93 10/09/18 16:00 97.7 84 18 122/57 (78) 94 Intake and Output 10/09/18 10/10/18 19:00 07:00 Intake Total 460 ml 250 ml Balance 460 ml 250 ml Intake Oral 460 ml 250 ml # Voids 3 4 # Bowel Movements 1 Height (Feet): 5 Height (Inches): 4.00 Weight (Pounds): 144 Cardiovascular: normal rate Respiratory/Chest: lungs clear Edema: no edema noted Karel Kebede MD Oct 10, 2018 13:11
[2018-10-10 16:00] VITALS: BP 141/86
[2018-10-10 20:00] VITALS: BP 126/48
[2018-10-10] MEDS: Levemir Flexpen SUBQ SCH (20:33)
[2018-10-11] VITALS: BP 121/54
[2018-10-11 04:00] VITALS: BP 104/54
[2018-10-11] MEDS: Cephalexin 250mg Cap ORAL SCH ×2 (06:24→14:09)
[2018-10-11] MEDS: NovoLOG Insulin Flexpen SUBQ SCH ×3 (06:26→16:50)
[2018-10-11] MEDS ORDERED: sitaGLIPtin 50mg tab ORAL SCH (06:30)
[2018-10-11 08:00] VITALS: BP 119/52
[2018-10-11] MEDS: Aspirin EC 81mg tab ORAL SCH (08:34)
[2018-10-11] MEDS ORDERED: Levemir Flexpen SUBQ SCH (09:00)
[2018-10-11 12:15] VITALS: BP 130/61
--- NOTE | 2018-10-11 14:36 | Infectious Diseases Prog Note ---
Assessment/Plan Assessment/Plan A 1. E. coli urinary tract infection. 2. Diabetes. 3. Hypertension. 4. Coronary artery disease status post stent placement. P; Continue Keflex X 1 day Subjective ROS Limited/Unobtainable: Yes Gastrointestinal/Abdominal: Reports: other - lower abdominal pain Allergies: Coded Allergies: PIOGLITAZONE (Unverified Allergy, Unknown, 09/05/16) Objective Vital Signs Last 24 Hour Vital Signs Date Time Temp Pulse Resp B/P (MAP) Pulse Ox O2 Delivery O2 Flow Rate FiO2 10/11/18 12:15 98.3 79 21 130/61 (84) 97 10/11/18 09:02 Room Air 10/11/18 08:00 97.2 82 20 119/52 (74) 99 10/11/18 04:00 97.6 79 16 104/54 (71) 96 10/11/18 00:00 98.1 79 16 121/54 (76) 95 10/10/18 21:00 Room Air 10/10/18 20:00 98.3 87 17 126/48 (74) 94 10/10/18 16:00 97.1 73 19 141/86 (104) 97 Height (Feet): 5 Height (Inches): 4.00 Weight (Pounds): 144 General Appearance: no acute distress HEENT: mucous membranes moist Respiratory/Chest: lungs clear Cardiovascular: normal rate Abdomen: soft, non tender Extremities: no edema Neurologic/Psychiatric: alert, responsive Laboratory Tests Test 10/11/18 05:45 Hemoglobin A1c 9.1 % (4.3-6.0) H Current Medications Medications (Trade) Dose Ordered Sig/Jose Route PRN Reason Start Time Stop Time Status Last Admin Dose Admin Acetaminophen (Tylenol) 500 mg Q6H PRN ORAL Mild Pain/Temp > 100.5 10/05/18 16:30 11/04/18 16:29 Acetaminophen/ Hydrocodone Bitart ([place] 10/325) 1 tab Q4H PRN ORAL Severe Pain (Pain Scale 7-10) 10/05/18 20:15 10/12/18 20:14 10/08/18 22:02 Acetaminophen/ Hydrocodone Bitart ([place] 5/325) 1 tab Q4H PRN ORAL Moderate Pain (Pain Scale 4-6) 10/05/18 20:15 10/12/18 20:14 Al Hydroxide/Mg Hydroxide (Mylanta) 30 ml Q6H PRN ORAL Abdominal cramps 10/06/18 23:45 11/05/18 23:44 10/07/18 00:13 Aspirin (Ecotrin) 81 mg DAILY ORAL 10/05/18 16:30 11/04/18 16:29 10/11/18 08:34 Cephalexin (Keflex) 250 mg Q8HR ORAL 10/09/18 22:00 10/13/18 00:00 10/11/18 14:09 Dextrose (Dextrose 50%) 25 ml Q30M PRN IV Hypoglycemia 10/06/18 11:45 11/05/18 11:44 Dextrose (Dextrose 50%) 50 ml Q30M PRN IV Hypoglycemia 10/06/18 11:45 11/05/18 11:44 Famotidine (Pepcid) 20 mg BID ORAL 10/07/18 12:53 11/06/18 12:52 10/11/18 08:34 Gabapentin (Neurontin) 300 mg BID ORAL 10/05/18 18:00 11/04/18 17:59 10/11/18 08:34 Insulin Aspart (NovoLOG) 10 units NOVOTIAC SUBQ 10/11/18 06:30 11/10/18 06:29 10/11/18 12:06 Insulin Detemir (Levemir) 15 units EVERY 12 HOURS SUBQ 10/11/18 09:00 11/10/18 08:59 10/11/18 09:40 Nateglinide (Starlix) 120 mg TIAC ORAL 10/05/18 16:30 11/04/18 16:29 10/11/18 12:04 Ondansetron HCl (Zofran) 4 mg Q6H PRN IVP Nausea & Vomiting 10/09/18 08:30 11/08/18 08:29 10/09/18 09:45 Polyethylene Glycol (Miralax) 17 gm HSPRN PRN ORAL Constipation 10/05/18 16:30 11/04/18 16:29 Sitagliptin Phosphate (Januvia) 25 mg ACBREAKFAST ORAL 10/12/18 06:30 11/11/18 06:29 Zolpidem Tartrate (Ambien) 5 mg HSPRN PRN ORAL Insomnia 10/05/18 16:30 10/12/18 16:29 10/08/18 20:36 Sunny Sierra MD Oct 11, 2018 14:36
[2018-10-11] MEDS ORDERED: JANUVIA25 MG ORAL (15:24)
[2018-10-11] MEDS ORDERED: ASPIRIN-LOW81 MG ORAL (15:24)
[2018-10-11] MEDS ORDERED: STARLIX120 MG ORAL (15:24)
--- NOTE | 2018-10-11 15:28 | General Progress Note ---
Assessment/Plan Problem List: (1) Acute encephalopathy ICD Codes: G93.40 - Encephalopathy, unspecified SNOMED: 2398912 (2) Diabetes mellitus ICD Codes: E11.9 - Type 2 diabetes mellitus without complications SNOMED: 00426613 (3) UTI (urinary tract infection) ICD Codes: N39.0 - Urinary tract infection, site not specified SNOMED: 58436945 (4) Episode of generalized weakness ICD Codes: R53.1 - Weakness SNOMED: 69258354 Assessment/Plan cont as is to SNF today Subjective Allergies: Coded Allergies: PIOGLITAZONE (Unverified Allergy, Unknown, 09/05/16) Subjective confused Objective Last 24 Hour Vital Signs Date Time Temp Pulse Resp B/P (MAP) Pulse Ox O2 Delivery O2 Flow Rate FiO2 10/11/18 12:15 98.3 79 21 130/61 (84) 97 10/11/18 09:02 Room Air 10/11/18 08:00 97.2 82 20 119/52 (74) 99 10/11/18 04:00 97.6 79 16 104/54 (71) 96 10/11/18 00:00 98.1 79 16 121/54 (76) 95 10/10/18 21:00 Room Air 10/10/18 20:00 98.3 87 17 126/48 (74) 94 10/10/18 16:00 97.1 73 19 141/86 (104) 97 Intake and Output 10/10/18 10/11/18 19:00 07:00 Intake Total 480 ml 360 ml Balance 480 ml 360 ml Intake Oral 480 ml 360 ml # Voids 3 3 Laboratory Tests 10/11/18 05:45: Hemoglobin A1c 9.1H Height (Feet): 5 Height (Inches): 4.00 Weight (Pounds): 144 Respiratory/Chest: lungs clear Edema: no edema noted Generalized Karel Sierra MD Oct 11, 2018 15:28
[2018-10-11] MEDS ORDERED: CEPHALEXIN500 MG ORAL (15:59)
[2018-10-11 16:00] VITALS: BP 129/60
[2018-10-12] MEDS ORDERED: sitaGLIPtin 25mg tab ORAL SCH (06:30)
--- NOTE | 2018-10-12 13:03 | Discharge Summary ---
Discharge Summary Discharge Summary _ DATE OF ADMISSION: 10/05/2018 DATE OF DISCHARGE: 10/11/2018 DISCHARGED BY: Dr. Karel Sierra REASON FOR ADMISSION: 88 years old female with past medical history of diabetes, CVA, dementia, Haitian-speaking , presented to emergency department with generalized weakness , confusion and disorientation. Laboratory workup revealed mild leukocytosis with WBC 11.5, stable hemoglobin and hematocrit. BUN 40, creatinine 1.4. Lactic acid 1.2. Urinalysis was grossly positive for UTI. Troponin negative .EKG revealed normal sinus rhythm ,no acute ischemic changes. Chest x-ray revealed no acute cardiopulmonary pathology. Noted cardiac pacemaker. CT of the head revealed no acute intracranial findings. Generalized cerebral parenchymal volume loss noted, likely age-related, Patient admitted with diagnosis of UTI, renal failure, probably due to prerenal azotemia. dementia, diabetes mellitus. CONSULTANTS: ID specialist Dr. Sunny Sierra Net Washer Dr. Cevallos [facility]SE: Patient admitted and started on gentle IV hydration and broad-spectrum antibiotic. ID specialist closely followed. Urine culture revealed E. coli. Blood culture revealed 1 out of 4 diphtheroids, contaminant as per ID. Mild leukocytosis resolved. No fevers. Infectious disease specialist recommended to complete oral Keflex upon discharge for additional day. Mental status was closely monitored. Initial confusion was likely due to urinary tract infection . Prior to discharge mental status at baseline with underlying dementia. Blood sugar was managed with multiply anti-glycemic medications. Net Washer followed. Hemoglobin A1c- 9.1 , clearly not at goal. Patient was placed on long-acting Levemir, short acting NovoLog pre-meal along with oral Januvia and Starlix. Patient will require close monitoring of blood sugar as outpatient and further adjustment as needed. GI prophylaxis provided. Patient was provided initially with IV hydration. Nephrotoxins were avoided. Electrolytes replaced as needed. Patient likely had dehydration . Urinalysis with +3 protein. Patient possibly have diabetic nephropathy , further monitoring of renal function as outpatient. Patient with history of coronary artery disease, status post stent placement. Antiplatelet therapy with aspirin was continued. GI prophylaxis provided. Bowel regimen instituted. DVT prophylaxis with SCD provided. Patient clinically stabilized and was ready for transfer to group home facility for continuation of care. FINAL DIAGNOSES: E. coli UTI Acute encephalopathy secondary to UTI Diabetes mellitus( not controlled , hemoglobin A1c - 9.1) GERD Coronary artery disease , status post stent placement Dehydration DISCHARGE MEDICATIONS: See Medication Reconciliation list. DISCHARGE INSTRUCTIONS: Patient was discharged to the group home facility. Follow up with medical doctor at the facility. I have been assigned to dictate discharge summary for this account. I was not involved in the patient's management. Priscila Tavarez NP Oct 12, 2018 13:03
== END 2018-10-11 17:31 | DRG 690 ==
LOC: EDBD → EMR 12:00 → MERGE 12:00 → 4E 13:44 → EDBEDREQ 14:10
DX: N39.0 Urinary tract infection, site not specified (principal); G93.40 Encephalopathy, unspecified; E86.0 Dehydration; F03.90 Unspecified dementia, unspecified severity, without behavioral disturbance, psychotic disturbance, mood disturbance, and anxiety; E11.65 Type 2 diabetes mellitus with hyperglycemia; I25.10 Atherosclerotic heart disease of native coronary artery without angina pectoris; K21.9 Gastro-esophageal reflux disease without esophagitis; B96.20 Unspecified Escherichia coli [E. coli] as the cause of diseases classified elsewhere; Z98.61 Coronary angioplasty status; Z95.1 Presence of aortocoronary bypass graft; Z86.73 Personal history of transient ischemic attack (TIA), and cerebral infarction without residual deficits
CPT/HCPCS: 36415; 70450; 71045; 80048; 80053; 81003; 82550; 82553; 82962; 83036; 83605; 83690; 84484; 85025; 87040; 87086; 87181; 93005; 96365; 99285; J1815; J2405; S5561